=== PATIENT | female | born 1970 | race Caucasian/White ===

== ENCOUNTER 2021-05-06 09:07 | Emergency (ER) | payer MEDICAID ==
[~2021-05-06] VITALS: Ht 167.6 cm; Wt 90.9 kg
[2021-05-06] MEDS ORDERED: CASIRIVIMAB/IMDEVIMAB inject. 10 ML in normal saline 100ml IV soln 100 ML IV ONE (09:40)
[2021-05-06 13:46] VITALS: BP 150/98
== END 2021-05-06 13:38 | disposition home or self-care (01) ==
LOC: ER 09:08
DX: U07.1 COVID-19 (principal); R05.9 Cough, unspecified; R43.8 Other disturbances of smell and taste; R09.89 Other specified symptoms and signs involving the circulatory and respiratory systems; I10 Essential (primary) hypertension; E11.9 Type 2 diabetes mellitus without complications; F17.200 Nicotine dependence, unspecified, uncomplicated; Z90.49 Acquired absence of other specified parts of digestive tract
CPT/HCPCS: 99284; M0243; Q0244